=== PATIENT | female | born 1940 | race Caucasian/White ===

== ENCOUNTER 2022-02-14 17:15 | Outpatient (REF) | payer MEDICARE, SELFPAY ==
[2022-02-15 06:40] LABS: Hemoglobin A1C 6.1 % (<5.7)
== END 2022-02-14 17:16 | disposition home or self-care (01) ==
LOC: LBN 17:15
PROVIDERS: Visit Provider Physician Assistant Medical
DX: R73.09 Other abnormal glucose (principal)
CPT/HCPCS: 83036